=== PATIENT | female | born 1970 ===

== ENCOUNTER → 2024-04-01 11:43 | Outpatient (REF) | payer SELFPAY | LOC: HWRAD 11:43 | PROVIDERS: ATTENDING PHYSICIAN Family Medicine | DX: E78.2 Mixed hyperlipidemia (principal) | CPT/HCPCS: 75571 ==

== ENCOUNTER → 2024-04-15 12:19 | Outpatient (REF) | payer OTHER, SELFPAY | LOC: PAVMRI 12:19 | PROVIDERS: ATTENDING PHYSICIAN Family Medicine | DX: S73.191D Other sprain of right hip, subsequent encounter (principal) | CPT/HCPCS: 73721 ==

== ENCOUNTER → 2025-10-04 15:26 | Outpatient (REF) | payer OTHER, SELFPAY | LOC: RAD 15:26 | PROVIDERS: ATTENDING PHYSICIAN Physician Assistant Medical; FAMILY PHYSICIAN Family Medicine | DX: M24.151 Other articular cartilage disorders, right hip (principal); M24.152 Other articular cartilage disorders, left hip | CPT/HCPCS: 73522 ==